=== PATIENT | male | born 1985 | race Caucasian/White ===

== ENCOUNTER 2017-03-12 02:23 | Emergency (ER) | payer SELFPAY ==
[2017-03-12 02:42] VITALS: TEMP 98
[2017-03-12] MEDS ORDERED: DiphenhydrAMINE 50 mg/ml Inj IM STA (03:54)
--- NOTE | 2017-03-12 04:24 | ED PDOC ---
HPI: Psych/Substance Abuse Time Seen by Provider: 03/12/17 02:44 Chief Complaint (Nursing): Psychiatric Evaluation Chief Complaint (Provider): Psychiatric Evaluation ED Caveat: Intoxicated History Per: Patient History/Exam Limitations: no limitations Onset/Duration Of Symptoms: Mins (prior to arrival) Current Symptoms Are (Timing): Still Present Additional History Per: Law Enforcement Additional Complaint(s): 31 year old male brought in by police for psychiatric evaluation after exhibiting erratic behavior prior to arrival. Patient was seen traveling to different train cars looking for his . He admits to drinking tonight and also reports feeling very anxious. History is limited due to intoxication. PMD: none Past Medical History Reviewed: Historical Data, Nursing Documentation, Vital Signs, Unable To Obtain (due to intoxication) Vital Signs: Last Vital Signs Temp 98.0 F 03/12/17 02:41 Pulse 108 H 03/12/17 02:41 Resp 17 03/12/17 02:41 BP 138/69 03/12/17 02:41 Pulse Ox 96 03/12/17 02:41 - Family History Family History: States: Unknown Family Hx - Allergies Allergies/Adverse Reactions: Allergies Allergy/AdvReac Type Severity Reaction Status Date / Time Unobtainable Allergy Verified 03/12/17 02:53 - ECG O2 Sat by Pulse Oximetry: 96 Medical Decision Making Medical Decision Making: Time: 03:54 Impression: alcohol abuse and anxiety Initial Plan: --Ativan 2 mg IM --Benedryl 50 mg IM --Haldol 5 mg IM 0700 Pt. pending urine tox. Pending sobriety. Will endorse to day team Dr. colindres. Scribe Attestation: Documented by Cecilia Owen, acting as a scribe for Chaparro Duran MD Provider Scribe Attestation: All medical record entries made by the Scribe were at my direction and personally dictated by me. I have reviewed the chart and agree that the record accurately reflects my personal performance of the history, physical exam, medical decision making, and the department course for this patient. I have also personally directed, reviewed, and agree with the discharge instructions and disposition. Disposition - Clinical Impression Clinical Impression: Alcohol abuse, Anxiety - Patient ED Disposition Is Patient to be Admitted: Transfer of Care - Disposition Disposition: Transfer of Care Disposition Time: 07:00 Condition: STABLE Forms: [email or web address] Connect (Uzbek) Patient Signed Over To: Quyen Colindres Handoff Comments: pending sobriety
--- NOTE | 2017-03-12 08:00 | ED PDOC ---
- ECG O2 Sat by Pulse Oximetry: 97 Medical Decision Making Medical Decision Makin:00 Patient signed out to the provider by Dr. Chaparro Duran pending clinical sobriety and discharge. Reassess -- Scribe Attestation: Documented by Louis Carey acting as a scribe for Quyen Colindres MD. 10.00 patient awake and alert. steady gait. no SI or HI. denies voices or visions. will discharge. Disposition Doctor Will See Patient In The: Office - Clinical Impression Clinical Impression: Alcohol abuse, Anxiety - POA Present On Arrival: None - Disposition Disposition: Routine/Home Disposition Time: 10:00 Condition: STABLE Instructions: Alcohol Intoxication (ED) Forms: [employer] (German)
[2017-03-12 16:07] VITALS: BP 107/62; PULSE 82; RESP 16; O2SAT 96
== END 2017-03-12 10:45 | disposition home or self-care (01) ==
LOC: H.ER 02:23
DX: F10.10 Alcohol abuse, uncomplicated (principal); F41.9 Anxiety disorder, unspecified
CPT/HCPCS: 82948; 96372; 99282; G0480; J1200; J1630; J2060